=== PATIENT | male | born 1950 | race Caucasian/White ===

== ENCOUNTER 2017-06-06 20:03 | Emergency (ER) | payer SELFPAY ==
[~2017-06-06] VITALS: Ht 170.2 cm; Wt 58.1 kg
[2017-06-06] MEDS ORDERED: ACETAMINOPHEN 325 MG TABLET. PO ONE (21:15)
[2017-06-06] MEDS ORDERED: HYDROcodone/APAP 5/325MG 1 TAB TABLET PO ONE (21:15)
[2017-06-06] MEDS ORDERED: IBUPROFEN 600 MG TABLET. PO ONE (21:15)
[2017-06-06 21:30] VITALS: BP 117/62
--- NOTE | 2017-06-06 21:38 | PHYS DOC ---
Past Medical History Past Medical History: Hypertension Past Surgical History: Appendectomy Alcohol Use: None Drug Use: None Adult General Chief Complaint Chief Complaint: MECHANICAL FALL HPI HPI Patient is a 66 year old gentleman who came to the ER today secondary to pain in his left hip and groin that occurred after falling approximately 2 weeks ago. Patient reports he was recently seen and evaluated [facility]. Patient reports that he was given a prescription for tramadol for his pain however he never got that filled. Patient denies any other symptomology sign. Patient has any fevers shakes chills nausea vomiting diarrhea chest pain terns breath cough cold or runny nose. Patient has any abdominal pain. Patient has any dysuria frequency or urgency. Review of systems: Constitutional: Denies fever or chills Eyes: Denies change in visual acuity, redness, or eye pain HENT: Denies nasal congestion or sore throat All other review systems are negative except as documented in the history of present illness portion. Physical exam: Constitutional: Well developed, well nourished, no acute distress, non-toxic appearance. HENT: Normocephalic, atraumatic, bilateral external ears normal, nose normal. Eyes: EOMI, conjunctiva normal, no discharge. Neck: Normal range of motion, no tenderness, supple, no stridor. Cardiovascular:Heart rate regular rhythm Lungs & Thorax: Bilateral breath sounds clear to auscultation no respiratory distress Abdomen: Bowel sounds normal, soft, no tenderness, no masses, no pulsatile masses. Skin: Warm, dry, no erythema, no rash. Back: No tenderness, no CVA tenderness. Extremities: No tenderness, no cyanosis, no clubbing, ROM intact, no edema. Neurologic: Alert and oriented X 3, normal motor function, normal sensory function, no focal deficits noted. Psychologic: Affect normal, judgement normal, mood normal. X-ray left hip and pelvis No acute fracture, dislocation. Patient does have significant degenerative joint disease. Patient's calcination of his arteries. Interpreted by ER physician. Assessment and plan 66-year-old gentleman who presents to the ER today secondary to left hip pain after fall 2 weeks ago. There does not appear to be any acute pathology on his x -ray. Patient was instructed that he will need to follow-up with her primary care physician for further evaluation of his DJD and his calcifications in his femoral artery. Patient be discharged home after being given Tylenol. Patient will need to follow-up with her clinic for further management of his pain. Current Medications Current Medications Current Medications Medications (Trade) Dose Ordered Sig/Chelsey Start Time Stop Time Status Last Admin Dose Admin Acetaminophen (Tylenol) 650 mg 1X ONCE 06/06/17 21:15 06/06/17 21:16 DC 06/06/17 21:12 650 MG Acetaminophen/ Hydrocodone Bitart (Lortab 5/325) 1 tab 1X ONCE 06/06/17 21:15 06/06/17 21:16 Cancel Ibuprofen (Motrin) 600 mg 1X ONCE 06/06/17 21:15 06/06/17 21:16 Cancel Allergies Allergies Allergies Coded Allergies Type Severity Reaction Last Updated Verified No Known Drug Allergies 06/06/17 No Current Patient Data Vital Signs Vital Signs Date Time Temp Pulse Resp B/P (MAP) Pulse Ox O2 Delivery O2 Flow Rate FiO2 06/06/17 20:45 94 Nasal Cannula 2.0 06/06/17 20:14 98.9 93 18 128/60 (82) 98.9 EKG EKG [] Radiology/Procedures Radiology/Procedures [] Course & Med Decision Making Course & Med Decision Making Pertinent Labs and Imaging studies reviewed. (See chart for details) [] Dragon Disclaimer Dragon Disclaimer This electronic medical record was generated, in whole or in part, using a voice recognition dictation system. Departure Departure Impression: Primary Impression: Left hip pain Disposition: HOME, SELF-CARE Condition: STABLE Patient Instructions: Chronic Alcoholism, Chronic Pain, Hip Pain Additional Instructions: He may take Tylenol as needed or ibuprofen as needed for pain. These medicines can be purchased [id number]. Thank you for allowing us to participate in your care today. Followup with your primary care physician in 3 days if your symptoms do not improve. Call your Primary Doctor tomorrow and inform them of your visit today. If you do not have a primary care provider you can ask for a list of our primary care providers. Return to the emergency department you have any new or concerning findings. This should be evaluated by the primary care physician and any necessary consulting services for continued management within a few days after discharge. Return to emergency room if you have any new or concerning symptoms including but not limited to fever, chills, nausea, vomiting, intractable pain, any new rashes, chest pain, shortness of air, uncontrolled bleeding, difficulty breathing, and/or vision loss. You may have been prescribed medication that can change in your level of thinking and ability to operate machinery. These medications include hydrocodone and Ativan. Also, Benadryl has been known to do this as well. Be sure to check with your pharmacist and ask if the medications you've prescribed can affect your level of consciousness. I recommend not operating heavy machinery or driving while on medication such as these. PIOTR HERRMANN MD Jun 06, 2017 21:38
--- NOTE | 2017-06-07 08:18 | RAD ---
Indication: Pain after fall on left hip today. Technique: 2 views of the left hip and an AP view the pelvis are submitted for review. No comparison is available. Findings: There is no fracture or dislocation. There is advanced degenerative changes in the left hip with remodeling of the femoral head and narrowing of the joint space superiorly. There are vascular calcifications. AP pelvis demonstrates no pelvic fracture with pelvic rings intact. There is degenerative change at the symphysis pubis but no diastases of the symphysis pubis or SI joints. Interspinous spacer device is noted. Impression: Osteoarthritis in the left hip. Negative for fracture.
== END 2017-06-06 21:57 | disposition home or self-care (01) ==
LOC: ER 20:03
DX: M16.12 Unilateral primary osteoarthritis, left hip (principal); I10 Essential (primary) hypertension
CPT/HCPCS: 73502; 99284

== ENCOUNTER 2017-06-09 12:55 | Observation (INO) | payer SELFPAY ==
[~2017-06-09] VITALS: Ht 170.2 cm; Wt 69.2 kg
[2017-06-09 13:35] LABS: BASO % 0 % (0-3); EOS % 1 % (0-3); HEMATOCRIT 40.9 % (39.0-53.0); HEMOGLOBIN 13.7 g/dL (13.0-17.5); LYMPH # 2.2 x10^3/uL (1.0-4.8); LYMPH % 21 % (24-48); MEAN CORPUSCULAR HEMOGLOBIN 30 pg (25-35); MEAN CORPUSCULAR HGB CONC 34 g/dL (31-37); MEAN CORPUSCULAR VOLUME 91 fL (79-100); MONO % 7 % (0-9); NEUT % 71 % (31-73); PLATELET COUNT 300 x10^3/uL (140-400); RED BLOOD COUNT 4.52 x10^6/uL (4.30-5.70); RED CELL DISTRIBUTION WIDTH 14.2 % (11.5-14.5); WHITE BLOOD COUNT 10.4 x10^3/uL (4.0-11.0)
[2017-06-09 13:44] LABS: BARBITURATES NEG (NEG); BENZODIAZEPINES NEG (NEG); CANNABINOIDS NEG (NEG); COCAINE NEG (NEG); METHADONE NEG (NEG); OPIATES NEG (NEG); PHENCYCLIDINE NEG (NEG)
[2017-06-09 13:56] LABS: ALBUMIN 3.6 g/dL (3.4-5.0); CALCIUM 8.5 mg/dL (8.5-10.1); CREATININE 0.7 mg/dL (0.7-1.3); GFR 113.5; TOTAL BILIRUBIN 0.5 mg/dL (0.2-1.0); TOTAL PROTEIN 7.2 g/dL (6.4-8.2)
[2017-06-09 13:59] LABS: POTASSIUM 2.9 mmol/L (3.5-5.1)
[2017-06-09] MEDS ORDERED: IBUPROFEN 600 MG TABLET. PO ONE (14:15)
[2017-06-09] MEDS ORDERED: POTASSIUM CHLORIDE 20 MEQ TABLET.ER. PO ONE (14:15)
[2017-06-09] MEDS ORDERED: ONDANSETRON PF 4 MG/2 ML VIAL. IV PRN (15:15)
[2017-06-09] MEDS: POTASSIUM CHLORIDE 20 MEQ TABLET.ER. PO SCH ×2 (15:57→22:30)
--- NOTE | 2017-06-09 20:09 | PHYS DOC ---
Past Medical History Past Medical History: Alcoholism, High Cholesterol, Hypertension, [place], Other Additional Past Medical Histor: chronic pain Past Surgical History: Tonsillectomy, Other Additional Past Surgical Histo: lumbar laminectomy, spinal device implant Additional Information: reports 3 cigarettes per day Alcohol Use: Heavy Additional Information: 1 pint vodka daily Drug Use: None Adult General Chief Complaint Chief Complaint: ALCOHOL INTOXICATION HPI HPI Patient is a 66 year old gentleman who presents to ER today for further evaluation of his pain to his left hip. Patient reports that he fell approximately 2-3 weeks ago. Patient reports that he was evaluated at [facility] and was given a prescription for tramadol which she did not fill. Patient was here in the ER approximately 2-3 days ago for the same complaint at which time he had an x-ray done of his hip which revealed no acute fracture or pathology. Patient reports that he is a heavy drinker. Patient reports she has a history of hypertension. No diabetes liver longer kidney problems. Patient has had no prior abdominal or chest surgeries. Patient reports he smokes and he drinks approximately 1-2 pints of alcohol a day. Patient denies any drug use. Patient has any fevers shakes chills nausea vomiting diarrhea chest pain or shortness of breath. Patient has any recent cough cold Raynaud's. Patient reports that he is homeless. Patient reports that he's had a history of depression and suicidal thoughts in the past. Patient presents to the ER today requesting assistance with his pain medicines and assistance with his left hip pain. Patient also reports"I'm having suicidal ideation" and is requesting assistance with his depression. Patient denies any recent attempts at suicide. Patient reports he has attempted suicide in the past. Review of systems: Constitutional: Denies fever or chills Eyes: Denies change in visual acuity, redness, or eye pain HENT: Denies nasal congestion or sore throat All other review systems are negative except as documented in the history of present illness portion. Physical exam: Constitutional: Well developed, well nourished, no acute distress, non-toxic appearance. HENT: Normocephalic, atraumatic, bilateral external ears normal, nose normal. Eyes: EOMI, conjunctiva normal, no discharge. Neck: Normal range of motion, no tenderness, supple, no stridor. Cardiovascular:Heart rate regular rhythm Lungs & Thorax: Bilateral breath sounds clear to auscultation no respiratory distress Abdomen: Bowel sounds normal, soft, no tenderness, no masses, no pulsatile masses. Skin: Warm, dry, no erythema, no rash. Back: No tenderness, no CVA tenderness. Extremities: tenderness to palpation to his left hip. Patient's full range of motion intact. Patient is able to ambulate within the ED with minimal discomfort. Patient is easily distracted., no cyanosis, no clubbing, ROM intact , no edema. Neurologic: Alert and oriented X 3, normal motor function, normal sensory function, no focal deficits noted. Psychologic: patient with suicidal ideation. Assessment and plan This is a 66-year-old gentleman who presents to the ER today for further evaluation of his left hip pain. While patient was here he had labs drawn for medical clearance for his depression and for suicidal ideation. Patient has been evaluated by the psychiatric assessment team and they will assist with trying to get the patient admitted to the inpatient unit for his depression and suicidal ideation. Patient's labs were significant for an elevated alcohol level. Patient's alcohol level today in the ER was 194. Patient's urine drug screen was negative. Patient's electrolytes were all within normal limits except for hypokalemia. Patient had a potassium of 2.9. Patient has been repleted in the ED. Plan was to admit the patient to the hospital for his alcohol intoxication and his hypokalemia. Patient be given 2 doses of potassium in the ER and his potassium level has been repeated. Patient's repeat potassium level was 3.5. We are currently awaiting [facility] to evaluate and approve him for inpatient admission. Laboratory Tests Test 06/09/17 13:00 06/09/17 13:22 Urine Opiates Screen Neg Urine Methadone Screen Neg Urine Barbiturates Neg Urine Phencyclidine Screen Neg Urine Amphetamine/Methamphetamine Neg Urine Benzodiazepines Screen Neg Urine Cocaine Screen Neg Urine Cannabinoids Screen Neg Urine Ethyl Alcohol Pos White Blood Count 10.4 x10^3/uL Red Blood Count 4.52 x10^6/uL Hemoglobin 13.7 g/dL Hematocrit 40.9 % Mean Corpuscular Volume 91 fL Mean Corpuscular Hemoglobin 30 pg Mean Corpuscular Hemoglobin Concent 34 g/dL Red Cell Distribution Width 14.2 % Platelet Count 300 x10^3/uL Neutrophils (%) (Auto) 71 % Lymphocytes (%) (Auto) 21 % Monocytes (%) (Auto) 7 % Eosinophils (%) (Auto) 1 % Basophils (%) (Auto) 0 % Neutrophils # (Auto) 7.4 x10^3uL Lymphocytes # (Auto) 2.2 x10^3/uL Monocytes # (Auto) 0.7 x10^3/uL Eosinophils # (Auto) 0.1 x10^3/uL Basophils # (Auto) 0.0 x10^3/uL Sodium Level 144 mmol/L Potassium Level 2.9 mmol/L Chloride Level 106 mmol/L Carbon Dioxide Level 25 mmol/L Anion Gap 13 Blood Urea Nitrogen 7 mg/dL Creatinine 0.7 mg/dL Estimated GFR (Cockcroft-Gault) 113.5 BUN/Creatinine Ratio 10 Glucose Level 102 mg/dL Calcium Level 8.5 mg/dL Total Bilirubin 0.5 mg/dL Aspartate Amino Transf (AST/SGOT) 23 U/L Alanine Aminotransferase (ALT/SGPT) 25 U/L Alkaline Phosphatase 119 U/L Total Protein 7.2 g/dL Albumin 3.6 g/dL Albumin/Globulin Ratio 1.0 Ethyl Alcohol Level 194 mg/dL Current Medications Medications (Trade) Dose Ordered Sig/Chelsey Route PRN Reason Start Time Stop Time Status Last Admin Dose Admin Potassium Chloride (Klor-Con) 40 meq 1X ONCE PO 06/09/17 14:15 06/09/17 14:16 DC 06/09/17 14:14 40 MEQ Ibuprofen (Motrin) 600 mg 1X ONCE PO 06/09/17 14:15 06/09/17 14:16 DC 06/09/17 14:15 600 MG Current Medications Current Medications Current Medications Medications (Trade) Dose Ordered Sig/Chelsey Start Time Stop Time Status Last Admin Dose Admin Ibuprofen (Motrin) 600 mg 1X ONCE 06/09/17 14:15 06/09/17 14:16 DC 06/09/17 14:15 600 MG Potassium Chloride (Klor-Con) 40 meq 1X ONCE 06/09/17 14:15 06/09/17 14:16 DC 06/09/17 14:14 40 MEQ Allergies Allergies Allergies Coded Allergies Type Severity Reaction Last Updated Verified No Known Drug Allergies 06/06/17 No Current Patient Data Vital Signs Vital Signs Date Time Temp Pulse Resp B/P (MAP) Pulse Ox O2 Delivery O2 Flow Rate FiO2 06/09/17 14:54 66 18 136/65 (88) 95 Room Air 06/09/17 12:55 98.2 98.2 Lab Values Laboratory Tests Test 06/09/17 13:00 06/09/17 13:22 Urine Opiates Screen Neg (NEG) Urine Methadone Screen Neg (NEG) Urine Barbiturates Neg (NEG) Urine Phencyclidine Screen Neg (NEG) Urine Amphetamine/Methamphetamine Neg (NEG) Urine Benzodiazepines Screen Neg (NEG) Urine Cocaine Screen Neg (NEG) Urine Cannabinoids Screen Neg (NEG) Urine Ethyl Alcohol Pos (NEG) White Blood Count 10.4 x10^3/uL (4.0-11.0) Red Blood Count 4.52 x10^6/uL (4.30-5.70) Hemoglobin 13.7 g/dL (13.0-17.5) Hematocrit 40.9 % (39.0-53.0) Mean Corpuscular Volume 91 fL (79-100) Mean Corpuscular Hemoglobin 30 pg (25-35) Mean Corpuscular Hemoglobin Concent 34 g/dL (31-37) Red Cell Distribution Width 14.2 % (11.5-14.5) Platelet Count 300 x10^3/uL (140-400) Neutrophils (%) (Auto) 71 % (31-73) Lymphocytes (%) (Auto) 21 % (24-48) L Monocytes (%) (Auto) 7 % (0-9) Eosinophils (%) (Auto) 1 % (0-3) Basophils (%) (Auto) 0 % (0-3) Neutrophils # (Auto) 7.4 x10^3uL (1.8-7.7) Lymphocytes # (Auto) 2.2 x10^3/uL (1.0-4.8) Monocytes # (Auto) 0.7 x10^3/uL (0.0-1.1) Eosinophils # (Auto) 0.1 x10^3/uL (0.0-0.7) Basophils # (Auto) 0.0 x10^3/uL (0.0-0.2) Sodium Level 144 mmol/L (136-145) Potassium Level 2.9 mmol/L (3.5-5.1) *L Chloride Level 106 mmol/L (98-107) Carbon Dioxide Level 25 mmol/L (21-32) Anion Gap 13 (6-14) Blood Urea Nitrogen 7 mg/dL (8-26) L Creatinine 0.7 mg/dL (0.7-1.3) Estimated GFR (Cockcroft-Gault) 113.5 BUN/Creatinine Ratio 10 (6-20) Glucose Level 102 mg/dL (70-99) H Calcium Level 8.5 mg/dL (8.5-10.1) Total Bilirubin 0.5 mg/dL (0.2-1.0) Aspartate Amino Transferase (AST) 23 U/L (15-37) Alanine Aminotransferase (ALT) 25 U/L (16-63) Alkaline Phosphatase 119 U/L (46-116) H Total Protein 7.2 g/dL (6.4-8.2) Albumin 3.6 g/dL (3.4-5.0) Albumin/Globulin Ratio 1.0 (1.0-1.7) Ethyl Alcohol Level 194 mg/dL (0-10) H Laboratory Tests 06/09/17 13:22 Laboratory Tests 06/09/17 13:22 EKG EKG [] Radiology/Procedures Radiology/Procedures [] Course & Med Decision Making Course & Med Decision Making Pertinent Labs and Imaging studies reviewed. (See chart for details) [] Dragon Disclaimer Dragon Disclaimer This electronic medical record was generated, in whole or in part, using a voice recognition dictation system. Departure Departure Impression: Primary Impression: Hypokalemia Additional Impressions: Suicidal ideation Alcohol intoxication Left hip pain Condition: STABLE Referrals: NO PCP (PCP) Problem Qualifiers PIOTR HERRMANN MD Jun 09, 2017 20:09
[2017-06-09] MEDS: ACETAMINOPHEN 325 MG TABLET. PO PRN (21:20)
[2017-06-09] MEDS: ZOLPIDEM 5 MG TABLET. PO PRN (22:57)
[2017-06-09] MEDS: traMADol 50 MG TABLET PO PRN (22:58)
[2017-06-09 23:07] VITALS: BP 146/82
--- NOTE | 2017-06-09 23:29 | HP ---
ADMIT DATE: 06/09/2017 CHIEF COMPLAINT: Suicidal ideation and alcohol intoxication. HISTORY OF PRESENT ILLNESS: The patient is a pleasant 66-year-old retired gentleman who states he has a master's degree and used to be a teacher in one of the schools in [facility]. Basically, he has been homeless now. His dad recently. He has been quite depressed and he has suicidal ideation now. While in the ER, we tried to get a bed for him at a psych unit but ____ no beds available. I have discussed the case with the ER physician. The patient does have hypokalemia of 2.9. We will plan to admit the patient with consultation to the psychiatric assessment team and replace his potassium. PAST MEDICAL HISTORY: Alcoholism, hypertension, hyperlipidemia, myocardial infarction, depression, lumbar laminectomy, spinal implant, chronic pain. ALLERGIES: None. FAMILY HISTORY: Hypertension. 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 No drugs. MEDICATIONS: Reviewed. REVIEW OF SYSTEMS: GENERAL: No history of weight change, weakness or fevers. SKIN: No bruising, hair changes or rashes. EYES: No blurred, double or loss of vision. NOSE AND THROAT: No history of nosebleeds, hoarseness or sore throat. HEART: No history of palpitations, chest pain or shortness of breath on exertion. LUNGS: Denies cough, hemoptysis, wheezing or shortness of breath. GASTROINTESTINAL: Denies changes in appetite, nausea, vomiting, diarrhea or constipation. GENITOURINARY: No history of frequency, urgency, hesitancy or nocturia. NEUROLOGIC: Denies history of numbness, tingling, tremor or weakness. PSYCHIATRIC: He complains depression. No history of panic, anxiety. ENDOCRINE: No history of heat or cold intolerance, polyuria or polydipsia. EXTREMITIES: Denies muscle weakness, joint pain, pain on walking or stiffness. PHYSICAL EXAMINATION: VITAL SIGNS: Temperature afebrile, pulse is 66, respirations 20, blood pressure 124/68. GENERAL: He is alert, cooperative, seems depressed. HEART: Normal S1, S2. LUNGS: Clear. ABDOMEN: Soft. Decreased bowel sounds, slightly tender. EXTREMITIES: Trace edema. SKIN: No rashes. PSYCHIATRIC: He is depressed. VASCULAR: Good capillary refill. ENDOCRINE: No thyromegaly. LYMPHATICS: No cervical nodes. HEMATOPOIETIC: No bruising. LABORATORY DATA: Electrolytes are normal other than potassium of 2.9. Hematology normal. Drug screen positive for alcohol and his level of alcohol is 194. ASSESSMENT AND PLAN: Alcohol intoxication and suicidal ideation. The patient has been admitted. We are consulting the psychiatric assessment team. Regarding his hypokalemia, we will give 40 mEq of potassium chloride. Try to resume his home meds. Recheck his labs. IBETH ADAMS DO DR: MELVIN/al JOB#: [id number] / [id number]
[2017-06-10] MEDS: POTASSIUM CHLORIDE 20 MEQ TABLET.ER. PO SCH ×4 (01:07→13:07)
[2017-06-10] MEDS ORDERED: ASPI325T8 PO (01:21)
[2017-06-10] MEDS ORDERED: CHLO25TA PO (01:21)
[2017-06-10] MEDS ORDERED: LISI40TA PO (01:21)
[2017-06-10] MEDS ORDERED: METO50TA2 PO (01:21)
[2017-06-10] MEDS ORDERED: VENL150C PO (01:21)
[2017-06-10] MEDS ORDERED: ATOR10TA60 PO (01:21)
[2017-06-10] MEDS ORDERED: GABA-586 PO (01:21)
[2017-06-10 03:00] VITALS: BP 146/89
[2017-06-10] MEDS: ACETAMINOPHEN 325 MG TABLET. PO PRN (03:26)
[2017-06-10] MEDS: traMADol 50 MG TABLET PO PRN (05:01)
[2017-06-10 05:43] LABS: CALCIUM 8.3 mg/dL (8.5-10.1); CREATININE 0.8 mg/dL (0.7-1.3); GFR 97.3; POTASSIUM 4.2 mmol/L (3.5-5.1)
[2017-06-10 07:00] VITALS: BP 147/86
[2017-06-10] MEDS: HYDROcodone/APAP 5/325MG 1 TAB TABLET PO PRN ×4 (08:04→21:05)
[2017-06-10 10:59] VITALS: BP 92/66
--- NOTE | 2017-06-10 13:01 | PDOC ---
PROGRESS NOTES Chief Complaint Chief Complaint Alcohol intoxication and suicidal ideation PMH: Alcoholism Hypertension Hyperlipidemia Myocardial infarction Depression Lumbar laminectomy Spinal Implant Chronic pain History of Present Illness History of Present Illness Pt upright in bed, appears comfortable. He states he is no longer having suicidal ideation. Requesting discharge to a snf of social security assessor arrangement. 1:1 observation present Vitals Vitals Vital Signs Date Time Temp Pulse Resp B/P (MAP) Pulse Ox O2 Delivery O2 Flow Rate FiO2 06/10/17 10:59 98.1 63 20 92/66 (75) 99 Room Air 98.1 Physical Exam General: Alert, Oriented X3, Cooperative, No acute distress Heart: Regular rate Lungs: Clear Abdomen: Soft, No tenderness Extremities: No clubbing, No cyanosis Skin: No rashes, No breakdown Labs LABS Laboratory Tests Test 06/09/17 13:00 06/09/17 13:22 06/09/17 19:15 06/10/17 04:23 Urine Opiates Screen Neg (NEG) Urine Methadone Screen Neg (NEG) Urine Barbiturates Neg (NEG) Urine Phencyclidine Screen Neg (NEG) Urine Amphetamine/Methamphetamine Neg (NEG) Urine Benzodiazepines Screen Neg (NEG) Urine Cocaine Screen Neg (NEG) Urine Cannabinoids Screen Neg (NEG) Urine Ethyl Alcohol Pos (NEG) White Blood Count 10.4 x10^3/uL (4.0-11.0) Red Blood Count 4.52 x10^6/uL (4.30-5.70) Hemoglobin 13.7 g/dL (13.0-17.5) Hematocrit 40.9 % (39.0-53.0) Mean Corpuscular Volume 91 fL (79-100) Mean Corpuscular Hemoglobin 30 pg (25-35) Mean Corpuscular Hemoglobin Concent 34 g/dL (31-37) Red Cell Distribution Width 14.2 % (11.5-14.5) Platelet Count 300 x10^3/uL (140-400) Neutrophils (%) (Auto) 71 % (31-73) Lymphocytes (%) (Auto) 21 % (24-48) Monocytes (%) (Auto) 7 % (0-9) Eosinophils (%) (Auto) 1 % (0-3) Basophils (%) (Auto) 0 % (0-3) Neutrophils # (Auto) 7.4 x10^3uL (1.8-7.7) Lymphocytes # (Auto) 2.2 x10^3/uL (1.0-4.8) Monocytes # (Auto) 0.7 x10^3/uL (0.0-1.1) Eosinophils # (Auto) 0.1 x10^3/uL (0.0-0.7) Basophils # (Auto) 0.0 x10^3/uL (0.0-0.2) Sodium Level 144 mmol/L (136-145) 144 mmol/L (136-145) Potassium Level 2.9 mmol/L (3.5-5.1) 3.5 mmol/L (3.5-5.1) 4.2 mmol/L (3.5-5.1) Chloride Level 106 mmol/L (98-107) 109 mmol/L (98-107) Carbon Dioxide Level 25 mmol/L (21-32) 28 mmol/L (21-32) Anion Gap 13 (6-14) 7 (6-14) Blood Urea Nitrogen 7 mg/dL (8-26) 12 mg/dL (8-26) Creatinine 0.7 mg/dL (0.7-1.3) 0.8 mg/dL (0.7-1.3) Estimated GFR (Cockcroft-Gault) 113.5 97.3 BUN/Creatinine Ratio 10 (6-20) Glucose Level 102 mg/dL (70-99) 106 mg/dL (70-99) Calcium Level 8.5 mg/dL (8.5-10.1) 8.3 mg/dL (8.5-10.1) Total Bilirubin 0.5 mg/dL (0.2-1.0) Aspartate Amino Transf (AST/SGOT) 23 U/L (15-37) Alanine Aminotransferase (ALT/SGPT) 25 U/L (16-63) Alkaline Phosphatase 119 U/L (46-116) Total Protein 7.2 g/dL (6.4-8.2) Albumin 3.6 g/dL (3.4-5.0) Albumin/Globulin Ratio 1.0 (1.0-1.7) Ethyl Alcohol Level 194 mg/dL (0-10) Review of Systems Review of Systems Denies suicidal ideation c/o left hip pain Assessment and Plan Assessmemt and Plan Problems Medical Problems: (1) Alcohol intoxication Status: Acute (2) Left hip pain Status: Acute 1. Alcohol intoxication 2. Suicidal ideation - resolved 3. Hypokalemia - resolved with 40 mEq Potassium Chloride POx1 4. Continue home meds 5. Discharge to snf of social security assessor arrangements 6. F/up with PCP in 1 week Problems: Comment Review of Relevant I have reviewed the following items amol (where applicable) has been applied. Labs Laboratory Tests Test 06/09/17 13:00 06/09/17 13:22 06/09/17 19:15 06/10/17 04:23 Urine Opiates Screen Neg (NEG) Urine Methadone Screen Neg (NEG) Urine Barbiturates Neg (NEG) Urine Phencyclidine Screen Neg (NEG) Urine Amphetamine/Methamphetamine Neg (NEG) Urine Benzodiazepines Screen Neg (NEG) Urine Cocaine Screen Neg (NEG) Urine Cannabinoids Screen Neg (NEG) Urine Ethyl Alcohol Pos (NEG) White Blood Count 10.4 x10^3/uL (4.0-11.0) Red Blood Count 4.52 x10^6/uL (4.30-5.70) Hemoglobin 13.7 g/dL (13.0-17.5) Hematocrit 40.9 % (39.0-53.0) Mean Corpuscular Volume 91 fL (79-100) Mean Corpuscular Hemoglobin 30 pg (25-35) Mean Corpuscular Hemoglobin Concent 34 g/dL (31-37) Red Cell Distribution Width 14.2 % (11.5-14.5) Platelet Count 300 x10^3/uL (140-400) Neutrophils (%) (Auto) 71 % (31-73) Lymphocytes (%) (Auto) 21 % (24-48) Monocytes (%) (Auto) 7 % (0-9) Eosinophils (%) (Auto) 1 % (0-3) Basophils (%) (Auto) 0 % (0-3) Neutrophils # (Auto) 7.4 x10^3uL (1.8-7.7) Lymphocytes # (Auto) 2.2 x10^3/uL (1.0-4.8) Monocytes # (Auto) 0.7 x10^3/uL (0.0-1.1) Eosinophils # (Auto) 0.1 x10^3/uL (0.0-0.7) Basophils # (Auto) 0.0 x10^3/uL (0.0-0.2) Sodium Level 144 mmol/L (136-145) 144 mmol/L (136-145) Potassium Level 2.9 mmol/L (3.5-5.1) 3.5 mmol/L (3.5-5.1) 4.2 mmol/L (3.5-5.1) Chloride Level 106 mmol/L (98-107) 109 mmol/L (98-107) Carbon Dioxide Level 25 mmol/L (21-32) 28 mmol/L (21-32) Anion Gap 13 (6-14) 7 (6-14) Blood Urea Nitrogen 7 mg/dL (8-26) 12 mg/dL (8-26) Creatinine 0.7 mg/dL (0.7-1.3) 0.8 mg/dL (0.7-1.3) Estimated GFR (Cockcroft-Gault) 113.5 97.3 BUN/Creatinine Ratio 10 (6-20) Glucose Level 102 mg/dL (70-99) 106 mg/dL (70-99) Calcium Level 8.5 mg/dL (8.5-10.1) 8.3 mg/dL (8.5-10.1) Total Bilirubin 0.5 mg/dL (0.2-1.0) Aspartate Amino Transf (AST/SGOT) 23 U/L (15-37) Alanine Aminotransferase (ALT/SGPT) 25 U/L (16-63) Alkaline Phosphatase 119 U/L (46-116) Total Protein 7.2 g/dL (6.4-8.2) Albumin 3.6 g/dL (3.4-5.0) Albumin/Globulin Ratio 1.0 (1.0-1.7) Ethyl Alcohol Level 194 mg/dL (0-10) Laboratory Tests Test 06/09/17 13:00 06/09/17 13:22 06/09/17 19:15 06/10/17 04:23 Urine Opiates Screen Neg (NEG) Urine Methadone Screen Neg (NEG) Urine Barbiturates Neg (NEG) Urine Phencyclidine Screen Neg (NEG) Urine Amphetamine/Methamphetamine Neg (NEG) Urine Benzodiazepines Screen Neg (NEG) Urine Cocaine Screen Neg (NEG) Urine Cannabinoids Screen Neg (NEG) Urine Ethyl Alcohol Pos (NEG) White Blood Count 10.4 x10^3/uL (4.0-11.0) Red Blood Count 4.52 x10^6/uL (4.30-5.70) Hemoglobin 13.7 g/dL (13.0-17.5) Hematocrit 40.9 % (39.0-53.0) Mean Corpuscular Volume 91 fL (79-100) Mean Corpuscular Hemoglobin 30 pg (25-35) Mean Corpuscular Hemoglobin Concent 34 g/dL (31-37) Red Cell Distribution Width 14.2 % (11.5-14.5) Platelet Count 300 x10^3/uL (140-400) Neutrophils (%) (Auto) 71 % (31-73) Lymphocytes (%) (Auto) 21 % (24-48) Monocytes (%) (Auto) 7 % (0-9) Eosinophils (%) (Auto) 1 % (0-3) Basophils (%) (Auto) 0 % (0-3) Neutrophils # (Auto) 7.4 x10^3uL (1.8-7.7) Lymphocytes # (Auto) 2.2 x10^3/uL (1.0-4.8) Monocytes # (Auto) 0.7 x10^3/uL (0.0-1.1) Eosinophils # (Auto) 0.1 x10^3/uL (0.0-0.7) Basophils # (Auto) 0.0 x10^3/uL (0.0-0.2) Sodium Level 144 mmol/L (136-145) 144 mmol/L (136-145) Potassium Level 2.9 mmol/L (3.5-5.1) 3.5 mmol/L (3.5-5.1) 4.2 mmol/L (3.5-5.1) Chloride Level 106 mmol/L (98-107) 109 mmol/L (98-107) Carbon Dioxide Level 25 mmol/L (21-32) 28 mmol/L (21-32) Anion Gap 13 (6-14) 7 (6-14) Blood Urea Nitrogen 7 mg/dL (8-26) 12 mg/dL (8-26) Creatinine 0.7 mg/dL (0.7-1.3) 0.8 mg/dL (0.7-1.3) Estimated GFR (Cockcroft-Gault) 113.5 97.3 BUN/Creatinine Ratio 10 (6-20) Glucose Level 102 mg/dL (70-99) 106 mg/dL (70-99) Calcium Level 8.5 mg/dL (8.5-10.1) 8.3 mg/dL (8.5-10.1) Total Bilirubin 0.5 mg/dL (0.2-1.0) Aspartate Amino Transf (AST/SGOT) 23 U/L (15-37) Alanine Aminotransferase (ALT/SGPT) 25 U/L (16-63) Alkaline Phosphatase 119 U/L (46-116) Total Protein 7.2 g/dL (6.4-8.2) Albumin 3.6 g/dL (3.4-5.0) Albumin/Globulin Ratio 1.0 (1.0-1.7) Ethyl Alcohol Level 194 mg/dL (0-10) Medications Current Medications Potassium Chloride (Klor-Con) 40 meq 1X ONCE PO Last administered on 14:14; Start 06/09/17 at 14:15; Stop 06/09/17 at 14:16; Status DC Ibuprofen (Motrin) 600 mg 1X ONCE PO Last administered on 06/09/17 14:15; Start 06/09/17 at 14:15; Stop 06/09/17 at 14:16; Status DC Ondansetron HCl (Zofran) 4 mg PRN Q8HRS PRN IV NAUSEA/VOMITING; Start 06/09/17 at 15:15; Stop 06/10/17 at 15:14 Acetaminophen (Tylenol) 650 mg PRN Q4HRS PRN PO FEVER Last administered on 06/10 03:26; Start 06/09/17 at 15:15; Stop 06/10/17 at 15:14 Potassium Chloride (Klor-Con) 40 meq Q4HRS PO Last administered on 06/10/17 09 :02; Start 06/09/17 at 16:00; Stop 06/10/17 at 12:01; Status DC Tramadol HCl (Ultram) 50 mg PRN Q6HRS PRN PO MODERATE PAIN Last administered on 06/10/17 05:01; Start 06/09/17 at 22:45 Zolpidem Tartrate (Ambien) 5 mg PRN QHS PRN PO INSOMNIA, MAY REPEAT IN 1HR Last administered on 06/09/17 22:57; Start 06/09/17 at 22:45 Acetaminophen/ Hydrocodone Bitart (Lortab 5/325) 1 tab PRN Q4HRS PRN PO PAIN Last administered on 06/10/17 08:04; Start 06/10/17 at 08:00 Active Scripts Active Reported Aspirin 325 Mg Tablet 325 Mg PO DAILY Chlorthalidone 25 Mg Tablet 1 Tab PO DAILY Lisinopril 40 Mg Tablet 40 Mg PO DAILY Atorvastatin Calcium 10 Mg Tablet Unknown Dose PO HS Metoprolol Tartrate 50 Mg Tablet 50 Mg PO DAILY Gabapentin 300 Mg Capsule 300 Mg PO TID Effexor Xr (Venlafaxine Hcl) 150 Mg Cap.er.24h 150 Mg PO DAILY Vitals/I & O Vital Sign - Last 24 Hours 06/09/17 06/09/17 06/09/17 06/09/17 12:55 14:54 15:57 17:35 Temp 98.2 98.2 Pulse 77 66 90 76 Resp 20 18 20 20 B/P (MAP) 118/63 (81) 136/65 (88) 160/74 (102) 137/73 (94) Pulse Ox 96 95 98 99 O2 Delivery Room Air Room Air Room Air Room Air 06/09/17 06/09/17 06/09/17 06/09/17 18:20 19:00 19:30 21:30 Pulse 66 72 70 66 Resp 24 20 17 20 B/P (MAP) 148/78 (101) 121/83 (96) 144/81 (102) 124/68 (86) Pulse Ox 98 95 95 96 O2 Delivery Room Air Room Air Room Air Room Air 06/09/17 06/09/17 06/09/17 06/10/17 22:43 23:07 23:18 03:00 Temp 98.0 98.2 98.0 98.2 Pulse 64 68 Resp 16 16 16 B/P (MAP) 146/82 (103) 146/89 (108) Pulse Ox 98 95 O2 Delivery Room Air Room Air Room Air 06/10/17 06/10/17 06/10/17 06/10/17 07:00 08:00 08:04 10:08 Temp 97.8 97.8 Pulse 58 Resp 18 B/P (MAP) 147/86 (106) Pulse Ox 96 96 96 O2 Delivery Room Air Room Air Room Air Room Air 06/10/17 10:59 Temp 98.1 98.1 Pulse 63 Resp 20 B/P (MAP) 92/66 (75) Pulse Ox 99 O2 Delivery Room Air Intake and Output 06/09/17 06/09/17 06/10/17 15:00 23:00 07:00 Intake Total 600 ml 2100 ml Output Total 400 ml 150 ml Balance -400 ml 450 ml 2100 ml IBETH ADAMS III DO Jun 10, 2017 13:01
[2017-06-10 15:00] VITALS: BP 144/81
[2017-06-10 19:41] VITALS: BP 143/83
[2017-06-10] MEDS: ZOLPIDEM 5 MG TABLET. PO PRN (21:05)
[2017-06-10 22:39] VITALS: BP 147/81
[2017-06-11] MEDS: HYDROcodone/APAP 5/325MG 1 TAB TABLET PO PRN ×5 (01:07→20:22)
[2017-06-11] MEDS: traMADol 50 MG TABLET PO PRN ×3 (02:53→22:29)
[2017-06-11 02:55] VITALS: BP 158/85
[2017-06-11 07:30] VITALS: BP 160/92
[2017-06-11 10:35] VITALS: BP 162/91
--- NOTE | 2017-06-11 11:59 | PDOC ---
PROGRESS NOTES Chief Complaint Chief Complaint Alcohol intoxication and suicidal ideation PMH: Alcoholism Hypertension Hyperlipidemia Myocardial infarction Depression Lumbar laminectomy Spinal Implant Chronic pain History of Present Illness History of Present Illness Pt upright in side chair. Reviewed discharge plan. Patient requesting to have his hip evaluated for surgery, stated he was evaluated at [facility] and told he needs surgery. He is concerned about the impact his hip pain will have on is upcoming employment opportunity. Vitals Vitals Vital Signs Date Time Temp Pulse Resp B/P (MAP) Pulse Ox O2 Delivery O2 Flow Rate FiO2 06/11/17 10:35 97.9 65 18 162/91 (114) 96 Room Air 97.9 Physical Exam General: Alert, Oriented X3, Cooperative, No acute distress Heart: Regular rate Lungs: Clear Abdomen: Soft, No tenderness Extremities: No clubbing, No cyanosis, Other (Left hip pain) Skin: No rashes, No breakdown Review of Systems Review of Systems Left hip pain Denies suicidal ideation Assessment and Plan Assessmemt and Plan Problems Medical Problems: (1) Alcohol intoxication Status: Acute (2) Left hip pain Status: Acute 1. Alcohol intoxication 2. Suicidal ideation - resolved 3. Hypokalemia - resolved 4. Left hip pain: Consult Dr. Byrd 5. Imaging: ordered AP pelvis, Lateral L hip per orthopedics 4. Continue home meds 5. Plan to discharge after cleared by orthopedics 6. F/up with PCP in 1 week Problems: Comment Review of Relevant I have reviewed the following items amol (where applicable) has been applied. Labs Laboratory Tests Test 06/09/17 13:00 06/09/17 13:22 06/09/17 19:15 06/10/17 04:23 Urine Opiates Screen Neg (NEG) Urine Methadone Screen Neg (NEG) Urine Barbiturates Neg (NEG) Urine Phencyclidine Screen Neg (NEG) Urine Amphetamine/Methamphetamine Neg (NEG) Urine Benzodiazepines Screen Neg (NEG) Urine Cocaine Screen Neg (NEG) Urine Cannabinoids Screen Neg (NEG) Urine Ethyl Alcohol Pos (NEG) White Blood Count 10.4 x10^3/uL (4.0-11.0) Red Blood Count 4.52 x10^6/uL (4.30-5.70) Hemoglobin 13.7 g/dL (13.0-17.5) Hematocrit 40.9 % (39.0-53.0) Mean Corpuscular Volume 91 fL (79-100) Mean Corpuscular Hemoglobin 30 pg (25-35) Mean Corpuscular Hemoglobin Concent 34 g/dL (31-37) Red Cell Distribution Width 14.2 % (11.5-14.5) Platelet Count 300 x10^3/uL (140-400) Neutrophils (%) (Auto) 71 % (31-73) Lymphocytes (%) (Auto) 21 % (24-48) Monocytes (%) (Auto) 7 % (0-9) Eosinophils (%) (Auto) 1 % (0-3) Basophils (%) (Auto) 0 % (0-3) Neutrophils # (Auto) 7.4 x10^3uL (1.8-7.7) Lymphocytes # (Auto) 2.2 x10^3/uL (1.0-4.8) Monocytes # (Auto) 0.7 x10^3/uL (0.0-1.1) Eosinophils # (Auto) 0.1 x10^3/uL (0.0-0.7) Basophils # (Auto) 0.0 x10^3/uL (0.0-0.2) Sodium Level 144 mmol/L (136-145) 144 mmol/L (136-145) Potassium Level 2.9 mmol/L (3.5-5.1) 3.5 mmol/L (3.5-5.1) 4.2 mmol/L (3.5-5.1) Chloride Level 106 mmol/L (98-107) 109 mmol/L (98-107) Carbon Dioxide Level 25 mmol/L (21-32) 28 mmol/L (21-32) Anion Gap 13 (6-14) 7 (6-14) Blood Urea Nitrogen 7 mg/dL (8-26) 12 mg/dL (8-26) Creatinine 0.7 mg/dL (0.7-1.3) 0.8 mg/dL (0.7-1.3) Estimated GFR (Cockcroft-Gault) 113.5 97.3 BUN/Creatinine Ratio 10 (6-20) Glucose Level 102 mg/dL (70-99) 106 mg/dL (70-99) Calcium Level 8.5 mg/dL (8.5-10.1) 8.3 mg/dL (8.5-10.1) Total Bilirubin 0.5 mg/dL (0.2-1.0) Aspartate Amino Transf (AST/SGOT) 23 U/L (15-37) Alanine Aminotransferase (ALT/SGPT) 25 U/L (16-63) Alkaline Phosphatase 119 U/L (46-116) Total Protein 7.2 g/dL (6.4-8.2) Albumin 3.6 g/dL (3.4-5.0) Albumin/Globulin Ratio 1.0 (1.0-1.7) Ethyl Alcohol Level 194 mg/dL (0-10) Medications Current Medications Potassium Chloride (Klor-Con) 40 meq 1X ONCE PO Last administered on 14:14; Start 06/09/17 at 14:15; Stop 06/09/17 at 14:16; Status DC Ibuprofen (Motrin) 600 mg 1X ONCE PO Last administered on 06/09/17 14:15; Start 06/09/17 at 14:15; Stop 06/09/17 at 14:16; Status DC Ondansetron HCl (Zofran) 4 mg PRN Q8HRS PRN IV NAUSEA/VOMITING; Start 06/09/17 at 15:15; Stop 06/10/17 at 15:14; Status DC Acetaminophen (Tylenol) 650 mg PRN Q4HRS PRN PO FEVER Last administered on 06/10 03:26; Start 06/09/17 at 15:15; Stop 06/10/17 at 15:14; Status DC Potassium Chloride (Klor-Con) 40 meq Q4HRS PO Last administered on 06/10/17 13 :07; Start 06/09/17 at 16:00; Stop 06/10/17 at 12:01; Status DC Tramadol HCl (Ultram) 50 mg PRN Q6HRS PRN PO MODERATE PAIN Last administered on 06/11/17 09:22; Start 06/09/17 at 22:45 Zolpidem Tartrate (Ambien) 5 mg PRN QHS PRN PO INSOMNIA, MAY REPEAT IN 1HR Last administered on 06/10/17 21:05; Start 06/09/17 at 22:45 Acetaminophen/ Hydrocodone Bitart (Lortab 5/325) 1 tab PRN Q4HRS PRN PO PAIN Last administered on 06/11/17t 09:22; Start 06/10/17 at 08:00 Active Scripts Active Reported Aspirin 325 Mg Tablet 325 Mg PO DAILY Chlorthalidone 25 Mg Tablet 1 Tab PO DAILY Lisinopril 40 Mg Tablet 40 Mg PO DAILY Atorvastatin Calcium 10 Mg Tablet Unknown Dose PO HS Metoprolol Tartrate 50 Mg Tablet 50 Mg PO DAILY Gabapentin 300 Mg Capsule 300 Mg PO TID Effexor Xr (Venlafaxine Hcl) 150 Mg Cap.er.24h 150 Mg PO DAILY Vitals/I & O Vital Sign - Last 24 Hours 06/10/17 06/10/17 06/10/17 06/10/17 13:07 15:00 17:14 18:28 Temp 98.5 98.5 Pulse 60 Resp 20 B/P (MAP) 144/81 (102) Pulse Ox 99 96 96 96 O2 Delivery Room Air Room Air Room Air 06/10/17 06/10/17 06/10/17 06/10/17 19:41 20:00 21:05 22:39 Temp 98.3 98.2 98.3 98.2 Pulse 67 68 Resp 18 B/P (MAP) 143/83 (103) 147/81 (103) Pulse Ox 97 95 O2 Delivery Room Air Room Air Room Air 06/11/17 06/11/17 06/11/17 06/11/17 01:07 02:53 02:55 04:04 Temp 98.2 98.2 Pulse 61 Resp 18 B/P (MAP) 158/85 (109) Pulse Ox 97 O2 Delivery Room Air Room Air Room Air Room Air 06/11/17 06/11/17 06/11/17 06/11/17 05:09 06:09 07:30 08:00 Temp 97.7 97.7 Pulse 60 Resp 18 B/P (MAP) 160/92 (114) Pulse Ox 96 O2 Delivery Room Air Room Air Room Air Room Air 06/11/17 10:35 Temp 97.9 97.9 Pulse 65 Resp 18 B/P (MAP) 162/91 (114) Pulse Ox 96 O2 Delivery Room Air Intake and Output 06/10/17 06/10/17 06/11/17 15:00 23:00 07:00 Intake Total 720 ml 520 ml 500 ml Output Total 1300 ml Balance 720 ml 520 ml -800 ml CASTLE,NIAL K III DO Jun 11, 2017 11:59
[2017-06-11 14:35] VITALS: BP 146/71
[2017-06-11 19:00] VITALS: BP 141/77
[2017-06-11] MEDS: ZOLPIDEM 5 MG TABLET. PO PRN ×2 (20:22→22:33)
[2017-06-11 23:00] VITALS: BP 142/85
[2017-06-12] MEDS: HYDROcodone/APAP 5/325MG 1 TAB TABLET PO PRN ×3 (00:48→12:53)
[2017-06-12 03:13] VITALS: BP 140/82
[2017-06-12 07:10] VITALS: BP 158/93
[2017-06-12] MEDS ORDERED: methylPREDNISolone ACETATE 80 MG/ML VIAL. IM ONE (07:45)
[2017-06-12] MEDS ORDERED: IOHEXOL 300 MG/ML 50 ML VIAL. INT ART ONE (07:45)
[2017-06-12] MEDS ORDERED: BUPIVACAINE 0.5% 50 ML VIAL. INJ ONE (07:45)
[2017-06-12] MEDS ORDERED: LIDOCAINE 1% / SOD BICARB 8.4% 20 ML VIAL. IJ ONE (07:45)
[2017-06-12] MEDS ORDERED: CONTRAST GIVEN MC PRN (07:45)
[2017-06-12] MEDS: traMADol 50 MG TABLET PO PRN (09:39)
[2017-06-12 10:55] VITALS: BP_SYST 109; BP_SYST 165; BP_DIAS 52; BP_DIAS 72
--- NOTE | 2017-06-12 11:58 | PDOC ---
PROGRESS NOTES Chief Complaint Chief Complaint Alcohol intoxication and suicidal ideation Homelessness PMH: Alcoholism Hypertension Hyperlipidemia Myocardial infarction Depression Lumbar laminectomy Spinal Implant Chronic pain History of Present Illness History of Present Illness Pt ambulating with walker to bedside, sitting upright on side of bed. Pt had a steroid injection in left hip stated it is helping with pain. Reviewed options for places to stay at discharge which is planned for today. Pt stated he has called all numbers provided by social insurance administrator. Mother lives in [place], [place] but states he does not think this is not an option due to his four sisters. States he is 2 weeks away from getting an apartment. Spoke with the social security assessor working with pt, states she has discussed options and resources with the patient over the last two days and would be talking with him again. SW will help with transportation. Vitals Vitals Vital Signs Date Time Temp Pulse Resp B/P (MAP) Pulse Ox O2 Delivery O2 Flow Rate FiO2 06/12/17 10:55 59 20 165/72 (103) 98 Room Air 06/12/17 07:10 97.7 97.7 Physical Exam General: Alert, Oriented X3, Cooperative, No acute distress Heart: Regular rate Lungs: Clear Abdomen: Soft, No tenderness Extremities: No clubbing, No cyanosis, Other (Left hip pain ) Skin: No rashes, No breakdown Review of Systems Review of Systems left hip pain - improved with steroid injection Denies suicidal ideation Assessment and Plan Assessmemt and Plan Problems Medical Problems: (1) Alcohol intoxication Status: Acute (2) Left hip pain Status: Acute 1. Alcohol intoxication 2. Suicidal ideation - resolved 3. Hypokalemia - resolved 4. Left hip pain: Consulted Dr. Byrd, received steroid injection this am 5. Discharge, f/u with PCP in 1 week Problems: Comment Review of Relevant I have reviewed the following items amol (where applicable) has been applied. Medications Current Medications Potassium Chloride (Klor-Con) 40 meq 1X ONCE PO Last administered on 14:14; Start 06/09/17 at 14:15; Stop 06/09/17 at 14:16; Status DC Ibuprofen (Motrin) 600 mg 1X ONCE PO Last administered on 06/09/17 14:15; Start 06/09/17 at 14:15; Stop 06/09/17 at 14:16; Status DC Ondansetron HCl (Zofran) 4 mg PRN Q8HRS PRN IV NAUSEA/VOMITING; Start 06/09/17 at 15:15; Stop 06/10/17 at 15:14; Status DC Acetaminophen (Tylenol) 650 mg PRN Q4HRS PRN PO FEVER Last administered on 06/10 03:26; Start 06/09/17 at 15:15; Stop 06/10/17 at 15:14; Status DC Potassium Chloride (Klor-Con) 40 meq Q4HRS PO Last administered on 06/10/17 13 :07; Start 06/09/17 at 16:00; Stop 06/10/17 at 12:01; Status DC Tramadol HCl (Ultram) 50 mg PRN Q6HRS PRN PO MODERATE PAIN Last administered on 06/12/17 09:39; Start 06/09/17 at 22:45 Zolpidem Tartrate (Ambien) 5 mg PRN QHS PRN PO INSOMNIA, MAY REPEAT IN 1HR Last administered on 06/11/17 22:33; Start 06/09/17 at 22:45 Acetaminophen/ Hydrocodone Bitart (Lortab 5/325) 1 tab PRN Q4HRS PRN PO PAIN Last administered on 06/12/17 08:26; Start 06/10/17 at 08:00 Methylprednisolone Acetate (DEPO-Medrol 80MG VIAL) 80 mg 1X ONCE IM Last administered on 06/12/17 09:18; Start 06/12/17 at 07:45; Stop 06/12/17 at 07:46 ; Status DC Bupivacaine HCl (Marcaine 0.5%) 50 ml 1X ONCE INJ Last administered on 09:18; Start 06/12/17 at 07:45; Stop 06/12/17 at 07:46; Status DC Iohexol (Omnipaque 300 Mg/ml) 50 ml 1X ONCE INT ART Last administered on 09:19; Start 06/12/17 at 07:45; Stop 06/12/17 at 07:46; Status DC Lidocaine/Sodium Bicarbonate (Buffered Lidocaine 1%) 20 ml 1X ONCE IJ Last administered on 06/12/17 09:19; Start 06/12/17 at 07:45; Stop 06/12/17 at 07:46 ; Status DC Info (Do NOT chart on this entry -- for MONITORING) 1 each PRN DAILY PRN MC SEE COMMENTS; Start 06/12/17 at 07:45; Stop 06/14/17 at 07:44 Active Scripts Active Reported Aspirin 325 Mg Tablet 325 Mg PO DAILY Chlorthalidone 25 Mg Tablet 1 Tab PO DAILY Lisinopril 40 Mg Tablet 40 Mg PO DAILY Atorvastatin Calcium 10 Mg Tablet Unknown Dose PO HS Metoprolol Tartrate 50 Mg Tablet 50 Mg PO DAILY Gabapentin 300 Mg Capsule 300 Mg PO TID Effexor Xr (Venlafaxine Hcl) 150 Mg Cap.er.24h 150 Mg PO DAILY Vitals/I & O Vital Sign - Last 24 Hours 06/11/17 06/11/17 06/11/17 06/11/17 14:35 19:00 20:00 20:22 Temp 96.9 98.5 96.9 98.5 Pulse 61 60 Resp 18 20 20 B/P (MAP) 146/71 (96) 141/77 (98) Pulse Ox 97 96 O2 Delivery Room Air Room Air Room Air Room Air 06/11/17 06/11/17 06/12/17 06/12/17 22:29 23:00 00:48 03:13 Temp 98.4 97.6 98.4 97.6 Pulse 64 58 Resp 18 20 20 B/P (MAP) 142/85 (104) 140/82 (101) Pulse Ox 96 96 O2 Delivery Room Air Room Air Room Air Room Air 06/12/17 06/12/17 06/12/17 06/12/17 07:10 07:30 08:26 09:39 Temp 97.7 97.7 Pulse 71 Resp 20 B/P (MAP) 158/93 (114) Pulse Ox 95 O2 Delivery Room Air Room Air Room Air Room Air 06/12/17 06/12/17 09:39 10:55 Pulse 59 Resp 20 B/P (MAP) 165/72 (103) Pulse Ox 98 O2 Delivery Room Air Room Air Intake and Output 06/11/17 06/11/17 06/12/17 15:00 23:00 07:00 Intake Total 540 ml 180 ml 800 ml Output Total 350 ml Balance 190 ml 180 ml 800 ml IBETH ADAMS III DO Jun 12, 2017 11:58
--- NOTE | 2017-06-12 12:09 | RAD ---
Left hip joint injection Indication: Left hip osteoarthritis flare up. Technique: Fluoroscopy-guided left hip injection. Total fluoroscopy time of 0.3 minutes with one image. Comparison: None Findings: After selecting appropriate entry point on the skin, the skin was prepared and draped in usual sterile fashion. 1% lidocaine was used for local anesthesia. 22-gauge spinal needle was advanced under fluoroscopy. The position of the needle was confirmed using IV contrast. After that, 1 mL of Depo-Medrol 80 mg, 4 mL of Sensorcaine 0.5% and 3 cc of lidocaine 1% was injected into the joint. Patient tolerated procedure well without any complications. Impression: Uncomplicated left hip joint steroid injection.
[2017-06-12 14:50] VITALS: BP 146/84
[2017-06-12] MEDS ORDERED: HYDR-2758 PO (15:58)
--- NOTE | 2017-06-16 16:15 | PDOC2 ---
CONSULT Date of Consult Date of Consult DATE: 06/11/17 *late entry, patient was seen 06/11/[address] Anand. Reason for Consult Reason for Consult: left hip pain Referring Physician Referring Physician: Ken Identification/Chief Complaint Chief Complaint left hip pain Problems: Source Source: Chart review, Patient History of Present Illness Reason for Visit: Mr. Casarez is a pleasant 66 year old male patient with left hip pain. He is currently homeless and was admitted with alcohol intoxication and suicidal ideation. At this time, he denies any suicidal ideation. He states he has had left hip pain for many years that recently worsened when he fell on his hip a couple weeks ago. The pain is a dull ache that is better with rest and worse with prolonged weightbearing. The pain originated as groin pain. He states he was seen at [facility] and was told he needed total hip arthroplasty. He has never had a cortisone injection or any nonoperative treatment for the hip. Past Medical History Past Medical History alcoholism Cardiovascular: HTN, [place], Hyperlipidemia Psych: Depression Past Surgical History Past Surgical History lumbar laminectomy Family History Family History: Hypertension Social History No ALCOHOL: occassional Drugs: None Lives: Homeless Current Problem List Problem List Problems Medical Problems: (1) Alcohol intoxication Status: Acute (2) Left hip pain Status: Acute Current Medications Current Medications Current Medications Potassium Chloride (Klor-Con) 40 meq 1X ONCE PO Last administered on 14:14; Start 06/09/17 at 14:15; Stop 06/09/17 at 14:16; Status DC Ibuprofen (Motrin) 600 mg 1X ONCE PO Last administered on 06/09/17 14:15; Start 06/09/17 at 14:15; Stop 06/09/17 at 14:16; Status DC Ondansetron HCl (Zofran) 4 mg PRN Q8HRS PRN IV NAUSEA/VOMITING; Start 06/09/17 at 15:15; Stop 06/10/17 at 15:14; Status DC Acetaminophen (Tylenol) 650 mg PRN Q4HRS PRN PO FEVER Last administered on 06/10 03:26; Start 06/09/17 at 15:15; Stop 06/10/17 at 15:14; Status DC Potassium Chloride (Klor-Con) 40 meq Q4HRS PO Last administered on 06/10/17 13 :07; Start 06/09/17 at 16:00; Stop 06/10/17 at 12:01; Status DC Tramadol HCl (Ultram) 50 mg PRN Q6HRS PRN PO MODERATE PAIN Last administered on 06/12/17 09:39; Start 06/09/17 at 22:45; Stop 06/12/17 at 18:55; Status DC Zolpidem Tartrate (Ambien) 5 mg PRN QHS PRN PO INSOMNIA, MAY REPEAT IN 1HR Last administered on 06/11/17 22:33; Start 06/09/17 at 22:45; Stop 06/12/17 at 18:55; Status DC Acetaminophen/ Hydrocodone Bitart (Lortab 5/325) 1 tab PRN Q4HRS PRN PO PAIN Last administered on 06/12/17 12:53; Start 06/10/17 at 08:00; Stop 06/12/17 at 18:55; Status DC Methylprednisolone Acetate (DEPO-Medrol 80MG VIAL) 80 mg 1X ONCE IM Last administered on 06/12/17 09:18; Start 06/12/17 at 07:45; Stop 06/12/17 at 07:46 ; Status DC Bupivacaine HCl (Marcaine 0.5%) 50 ml 1X ONCE INJ Last administered on 09:18; Start 06/12/17 at 07:45; Stop 06/12/17 at 07:46; Status DC Iohexol (Omnipaque 300 Mg/ml) 50 ml 1X ONCE INT ART Last administered on 09:19; Start 06/12/17 at 07:45; Stop 06/12/17 at 07:46; Status DC Lidocaine/Sodium Bicarbonate (Buffered Lidocaine 1%) 20 ml 1X ONCE IJ Last administered on 06/12/17 09:19; Start 06/12/17 at 07:45; Stop 06/12/17 at 07:46 ; Status DC Info (Do NOT chart on this entry -- for MONITORING) 1 each PRN DAILY PRN MC SEE COMMENTS; Start 06/12/17 at 07:45; Stop 06/12/17 at 18:55; Status DC Active Scripts Active Reported Hydrocodone-Apap 5-325 (Hydrocodone Bit/Acetaminophen) 1 Each Tablet 1 Tab PO PRN Q6HRS PRN Aspirin 325 Mg Tablet 325 Mg PO DAILY Chlorthalidone 25 Mg Tablet 1 Tab PO DAILY Lisinopril 40 Mg Tablet 40 Mg PO DAILY Atorvastatin Calcium 10 Mg Tablet Unknown Dose PO HS Metoprolol Tartrate 50 Mg Tablet 50 Mg PO DAILY Gabapentin 300 Mg Capsule 300 Mg PO TID Effexor Xr (Venlafaxine Hcl) 150 Mg Cap.er.24h 150 Mg PO DAILY Allergies Allergies: Coded Allergies: No Known Drug Allergies (Unverified , 06/06/17) Physical Exam General: Alert, Oriented X3, Cooperative, No acute distress HEENT: Atraumatic, EOMI Lungs: Normal air movement Heart: Regular rate Abdomen: Soft Extremities: No clubbing, No cyanosis, Normal pulses Skin: No rashes, No breakdown, No significant lesion Neuro: Normal speech, Sensation intact Psych/Mental Status: Mental status NL, Mood NL MUSCULOSKELETAL: Other (Upon inspection of the left hip, there are no masses or skin lesions seen. Mild tenderness at joint, no tenderness over trochanteric bursa. There is pain with circumduction of hip. Hip shows motion of 40 degrees of external rotation and 0 degrees of internal rotation. Calf soft and nontender with negative Mandeep's. Good dorsiflexion and plantarflexion. Light touch sensation and peripheral pulses intact.) Images Images AP and lateral left hip x-rays were reviewed. There is no fracture, dislocation , or acute bony abnormality detected. The left hip shows significant degenerative changes. Assessment/Plan Assessment/Plan Left hip osteoarthritis. Findings were reviewed and treatment options were discussed with the patient. Dr. Byrd recommended a left hip cortisone injection under fluoroscopy and the patient agrees. He is welcome to followup with us outpatient but Dr. Byrd explained that we do not do primary total hip replacements and gave him a few references. YENNY SELBY Jun 16, 2017 16:14
== END 2017-06-12 18:40 | disposition home or self-care (01) ==
LOC: ER 12:55 → ED HOLD 15:07 → 6 SOUTH 22:12
PROVIDERS: ADMIT Internal Medicine; ATTEND Internal Medicine
DX: R45.851 Suicidal ideations (principal); F10.229 Alcohol dependence with intoxication, unspecified; E87.6 Hypokalemia; I10 Essential (primary) hypertension; E78.5 Hyperlipidemia, unspecified; I25.2 Old myocardial infarction; F32.9 Major depressive disorder, single episode, unspecified; G89.29 Other chronic pain; M25.552 Pain in left hip; I73.00 Raynaud's syndrome without gangrene; E78.00 Pure hypercholesterolemia, unspecified; F17.210 Nicotine dependence, cigarettes, uncomplicated; Z59.0 Homelessness; Z82.49 Family history of ischemic heart disease and other diseases of the circulatory system
CPT/HCPCS: 20610; 36415; 77002; 80048; 80053; 80307; 84132; 85025; 99285; G0378; G0480; J1040; J3490; Q9967; G0379; G0479